=== PATIENT | male | born 1970 | race Two or more races ===

== ENCOUNTER 2023-02-04 07:02 | Day surgery (SDC) | payer BC ==
[2023-02-03 11:33] VITALS: BMI 23.7
[2023-02-04] MEDS ORDERED: Oxymetazoline HCl 0.05% (30 ML BOT) ONE ×2 (07:40→08:42)
[2023-02-04] MEDS ORDERED: fentaNYL 50 mcg/mL 1 mL Vial ONE (08:37)
[2023-02-04] MEDS ORDERED: Midazolam HCl 2 mg/2 ml Vial ONE (08:37)
[2023-02-04] MEDS ORDERED: HYDROmorphone 0.5 MG/0.5 ML SYRINGE ONE (08:38)
[2023-02-04] MEDS ORDERED: EPINEPHrine 1 MG/ML AMP ONE (08:42)
[2023-02-04] MEDS ORDERED: Lidocaine 1% (PF) 30 ML VIAL ONE (08:42)
[2023-02-04] MEDS ORDERED: Ondansetron PF 4 MG/2 ML Vial ONE ×2 (08:52→10:42)
[2023-02-04] MEDS ORDERED: Lidocaine 1% PF 5 ML VIAL ONE (08:52)
[2023-02-04] MEDS ORDERED: Bacitracin Zinc Ointment 30 gm TUBE ONE ×2 (08:52→09:12)
[2023-02-04] MEDS ORDERED: Dexamethasone 20 MG/5 ML VIAL ONE (08:52)
[2023-02-04] MEDS ORDERED: PROPOFOL 200 MG/20 ML VIAL ONE (08:52)
[2023-02-04] MEDS ORDERED: Famotidine/PF 20 mg/2ml Vial ONE (11:06)
[2023-02-04] MEDS ORDERED: Morphine 2 MG/ML VIAL ONE (11:25)
[2023-02-04] MEDS ORDERED: Metoclopramide HCl 10 MG/2 ML VIAL ONE (11:42)
[2023-02-04] MEDS ORDERED: Promethazine HCl 25 MG/ML VIAL ONE (11:47)
== END 2023-02-04 13:45 | disposition home or self-care (01) ==
LOC: SDC 07:02
PROVIDERS: ATTEND Otolaryngology Plastic Surgery within the Head & Neck
PROC: 09BV8ZZ Excision of Left Ethmoid Sinus, Via Natural or Artificial Opening Endoscopic (ICD-10-PCS; principal; 2023-02-04)
PROC: 09BU8ZZ Excision of Right Ethmoid Sinus, Via Natural or Artificial Opening Endoscopic (ICD-10-PCS; principal; 2023-02-04)
PROC: 09BQ8ZZ Excision of Right Maxillary Sinus, Via Natural or Artificial Opening Endoscopic (ICD-10-PCS; principal; 2023-02-04)
PROC: 0CBN0ZZ Excision of Uvula, Open Approach (ICD-10-PCS; principal; 2023-02-04)
PROC: 09BR8ZZ Excision of Left Maxillary Sinus, Via Natural or Artificial Opening Endoscopic (ICD-10-PCS; principal; 2023-02-04)
PROC: 09BM8ZZ Excision of Nasal Septum, Via Natural or Artificial Opening Endoscopic (ICD-10-PCS; principal; 2023-02-04)
PROC: 09BL8ZZ Excision of Nasal Turbinate, Via Natural or Artificial Opening Endoscopic (ICD-10-PCS; principal; 2023-02-04)
DX: J34.2 Deviated nasal septum (principal); J34.3 Hypertrophy of nasal turbinates; J32.0 Chronic maxillary sinusitis; J32.2 Chronic ethmoidal sinusitis; K13.79 Other lesions of oral mucosa; I10 Essential (primary) hypertension; E78.5 Hyperlipidemia, unspecified; J30.89 Other allergic rhinitis; J30.81 Allergic rhinitis due to animal (cat) (dog) hair and dander; G47.39 Other sleep apnea; J30.1 Allergic rhinitis due to pollen
CPT/HCPCS: 93005; 93010; J0171; J1100; J1170; J2001; J2250; J2272; J2405; J2550; J2704; J2765; J3010; S0028